=== PATIENT | male | born 1965 | race Hispanic/Latino ===

== ENCOUNTER 2017-11-01 05:30 | Day surgery (SDC) | payer MEDICAID ==
[~2017-11-01] VITALS: Ht 167.6 cm; Wt 93.7 kg
[2017-11-01] MEDS ORDERED: SODIUM CHLORIDE 0.9% 1000ML 1,000 ML IV ONE (06:39)
[2017-11-01 06:42] VITALS: BP 140/79
[2017-11-01] MEDS ORDERED: OMEP20CA10 PO (07:04)
[2017-11-01] MEDS ORDERED: CARAL PO (07:04)
[2017-11-01] MEDS ORDERED: GEMF600T3 PO (07:04)
[2017-11-01] MEDS ORDERED: LOSA25TA21 PO (07:04)
[2017-11-01] MEDS ORDERED: GLIP2.5T2 PO (07:04)
[2017-11-01] MEDS ORDERED: GABA-529 PO (07:04)
[2017-11-01] MEDS ORDERED: METF-527 PO (07:04)
[2017-11-01] MEDS ORDERED: DIFL5DRO OP (07:04)
[2017-11-01] MEDS ORDERED: ASPI-555 PO (07:04)
[2017-11-01] MEDS ORDERED: TRAV2.5D OD (07:04)
[2017-11-01] MEDS ORDERED: PROPOFOL 10 MG/ML 20ML VIAL IV ONE ×2 (07:28→07:56)
[2017-11-01 08:05] VITALS: BP 80/45
== END 2017-11-01 08:45 | disposition home or self-care (01) ==
LOC: DAH 05:30 → ENDO 05:30
PROVIDERS: ATTEND Internal Medicine
DX: K31.7 Polyp of stomach and duodenum (principal); K29.50 Unspecified chronic gastritis without bleeding; Z68.35 Body mass index [BMI] 35.0-35.9, adult; I10 Essential (primary) hypertension; E11.9 Type 2 diabetes mellitus without complications; Z79.899 Other long term (current) drug therapy; Z79.84 Long term (current) use of oral hypoglycemic drugs; K21.0 Gastro-esophageal reflux disease with esophagitis; E78.4 Other hyperlipidemia; E78.5 Hyperlipidemia, unspecified; Z98.890 Other specified postprocedural states
CPT/HCPCS: 43239; 43251; 82948 ×2; 88305; 88312; A4606; J2704 ×2; J7030